=== PATIENT | male | born 1995 | race Two or more races ===

== ENCOUNTER 2017-02-22 11:42 | Emergency (ER) | payer MEDICAID ==
[~2017-02-22] VITALS: Ht 165.1 cm; Wt 65.8 kg
--- NOTE | 2017-02-22 11:58 | NUR ---
PT [facility]RA TO ER BED 12. PER REPORT, WITNESSED SEIZURE. PT IS [employer]. PLACED ON SEIZURE PRECAUTION. NO OBVIOUS HEAD TRAUMA. TONGUE LAC W/ NO ACTIVE BLEEDING. AWAITNG MD ARGUETA.
[2017-02-22] MEDS ORDERED: IV NS 0.9% 500 ML BAG IV ONE (12:00)
[2017-02-22] MEDS ORDERED: LEVETIRACETAM (500MG) 1,000 MG in IV NS 0.9% 100 ML IV SCH (12:00)
[2017-02-22] MEDS ORDERED: IV SET PRIMARY 1 EA INFUS.SET MC ONE (12:09)
[2017-02-22] MEDS ORDERED: IV NS 0.9% 500 ML IV ONE (12:09)
[2017-02-22] MEDS ORDERED: IV SET PRIMARY PUMP SET 1 EA INFUS.SET MC ONE (12:09)
[2017-02-22 12:10] LABS: BASOPHILS % (AUTO) 0.6 % (0.0-2.0); EOSINOPHILS % (AUTO) 0.3 % (0.0-6.0); HEMATOCRIT 45 % (39-51); HEMOGLOBIN 15.1 g/dL (13.5-17.5); LYMPHOCYTES # (AUTO) 1.6 /CMM (0.8-4.8); LYMPHOCYTES % (AUTO) 20.1 % (20.0-44.0); MEAN CORPUSCULAR HEMOGLOBIN 30 PG (26.0-33.0); MEAN CORPUSCULAR HGB CONC 33 g/dl (31.0-36.0); MEAN CORPUSCULAR VOLUME 89 fL (80-96); MONOCYTES # (AUTO) 0.4 /CMM (0.1-1.30); MONOCYTES % (AUTO) 5.1 % (2.0-12.0); NEUTROPHILS # (AUTO) 5.9 /CMM (1.8-8.9); NEUTROPHILS % (AUTO) 73.9 % (43.0-81.0); PLATELET COUNT (AUTO) 232 /CMM (150-450); RDW COEFFICIENT OF VARIATION 12.5 (11.5-15.0); RED BLOOD CELL COUNT(AUTO) 5.08 MIL/uL (4.5-6.0); WHITE BLOOD COUNT (AUTO) 7.9 K/uL (4.3-11.0)
--- NOTE | 2017-02-22 12:13 | NUR ---
PT TO RADIOLOGY HEAD CT SCAN VIA [facility].
[2017-02-22 12:19] LABS: CALCIUM, SERUM 9.5 mg/dL (8.5-10.1); CREATININE 1.4 mg/dL (0.6-1.3); POTASSIUM 3.7 mmol/L (3.5-5.1)
--- NOTE | 2017-02-22 12:33 | NUR ---
PATIENT REFUSE SCAN, NURSE WILL CALL WHEN READY
[2017-02-22] MEDS ORDERED: LORAZEPAM INJ 2 MG/ML VIAL ONE (12:35)
--- NOTE | 2017-02-22 12:40 | NUR ---
PT STILL CONFUSED UNABLE TO DO HEAD CT SCAN. DR VANESSA AWARE. MEDICATED ORDERED.
[2017-02-22] MEDS ORDERED: LORAZEPAM INJ 2 MG/ML VIAL IV ONE (13:00)
--- NOTE | 2017-02-22 13:05 | NUR ---
ACCOMPANIED PT TO RADIOLOGY FOR HEAD CT SCAN.
--- NOTE | 2017-02-22 14:14 | NUR ---
Patient discharged to home in stable condition. Written and verbal after care instructions given. Patient verbalizes understanding of instruction.IV removed. Catheter intact and site benign. Pressure and 4x4 applied to site. No bleeding noted. NAD NOTED UPON DISCHARGE, WILL FOLLOW UP WITH PMD AND RETURN IF SYMPTOMS GET WORSE.
[2017-02-22 14:15] VITALS: BP 146/93
== END 2017-02-22 14:15 | disposition home or self-care (01) ==
LOC: ER 11:43
DX: R56.9 Unspecified convulsions (principal); F17.200 Nicotine dependence, unspecified, uncomplicated
CPT/HCPCS: 36415; 70450-TC; 80048-TC; 85025-TC; A4606; J1953; J2060; J7030; J7040; Z7610

== ENCOUNTER 2022-12-17 08:17 | Emergency (ER) | payer MEDICAID, OTHER ==
[~2022-12-17] VITALS: Ht 170.2 cm; Wt 78.0 kg
--- NOTE | 2022-12-17 08:30 | NUR ---
ESTUARDO FROM HOME FOR POSSIBLE METH/ETOH ABUSE. SISTER AT BEDSIDE. PT IS AAOX4, DENIES SI/HI. DENIES METH USE AND ALCOHOL USE. SISTER AT BEDSIDE. PT WAS AGITATED ON SCENE PER PARAMEDICS BUT COOPERATIVE UPON ARRIVAL.
--- NOTE | 2022-12-17 08:31 | NUR ---
PT PLACED IN BED AND CONNECTED TO MONITOR. AWAITING MD ORDERS.
[2022-12-17] MEDS ORDERED: LORAZEPAM INJ 2 MG/ML VIAL ONE ×5 (09:18→15:58)
[2022-12-17] MEDS ORDERED: IV NS 0.9% 1,000 ML IV ONE ×2 (09:30→12:30)
[2022-12-17] MEDS ORDERED: LORAZEPAM INJ 2 MG/ML VIAL IV ONE ×3 (09:30→12:00)
[2022-12-17 09:43] LABS: BASOPHILS % (AUTO) 0.1 % (0.0-2.0); HEMATOCRIT 45 % (39-51); HEMOGLOBIN 14.5 g/dL (13.5-17.5); LYMPHOCYTES # (AUTO) 1.4 K/uL (0.8-4.8); LYMPHOCYTES % (AUTO) 12.3 % (20.0-44.0); MEAN CORPUSCULAR HGB CONC 32 g/dl (31.0-36.0); MEAN CORPUSCULAR VOLUME 88 fL (80-96); MONOCYTES # (AUTO) 0.6 K/uL (0.1-1.30); MONOCYTES % (AUTO) 5.1 % (2.0-12.0); NEUTROPHILS # (AUTO) 9.5 K/uL (1.8-8.9); NEUTROPHILS % (AUTO) 82.5 % (43.0-81.0); PLATELET COUNT (AUTO) 227 K/uL (150-450); RED BLOOD CELL COUNT(AUTO) 5.13 MIL/uL (4.5-6.0); WHITE BLOOD COUNT (AUTO) 11.5 K/uL (4.3-11.0)
[2022-12-17 10:05] LABS: CALCIUM, SERUM 9.5 mg/dL (8.5-10.1); CREATININE 1.1 mg/dL (0.6-1.3)
[2022-12-17 10:21] LABS: ALBUMIN 4.4 g/dL (3.4-5.0); BILIRUBIN,TOTAL 0.4 mg/dL (0.2-1.0); TOTAL PROTEIN, SERUM 8.6 g/dL (6.4-8.2)
[2022-12-17] MEDS ORDERED: FOLIC ACID 1 MG TABLET ONE (12:58)
[2022-12-17] MEDS ORDERED: THIAMINE HCL 100 MG TABLET ONE (12:58)
[2022-12-17] MEDS ORDERED: FOLIC ACID 1 MG TABLET PO ONE (13:00)
[2022-12-17] MEDS ORDERED: THIAMINE HCL 100 MG TABLET PO ONE (13:00)
[2022-12-17] MEDS ORDERED: HALOPERIDOL LACTATE INJ 5 MG/ML VIAL ONE (15:58)
[2022-12-17] MEDS ORDERED: diphenhydrAMINE HCL 50 MG/ML VIAL ONE (15:58)
[2022-12-17] MEDS ORDERED: HALOPERIDOL LACTATE INJ 5 MG/ML VIAL IM ONE (16:00)
[2022-12-17] MEDS ORDERED: diphenhydrAMINE HCL 50 MG/ML VIAL IM ONE (16:00)
[2022-12-17] MEDS ORDERED: LORAZEPAM INJ 2 MG/ML VIAL IM ONE (16:00)
--- NOTE | 2022-12-17 18:04 | NUR ---
TATIANA (SISTER) [phone] MARIAN (SISTER) [phone]
--- NOTE | 2022-12-17 18:50 | NUR ---
URINE SAMPLE SENT TO LAB
--- NOTE | 2022-12-17 22:35 | NUR ---
patient is awakr, alert and Ox4. ambulatory with steady gaits. reported feeeling well and requesting to leave. aware
[2022-12-17 22:48] LABS: BILIRUBIN,URINE NEGATIVE (NEGATIVE); COLOR,URINE YELLOW (YELLOW); LEUKOCYTE ESTERASE ,URINE NEGATIVE (NEGATIVE); NITRITE, URINE NEGATIVE (NEGATIVE); PH,URINE 5.5 (5.0-8.0); PROTEIN,URINE NEGATIVE (NEGATIVE); UGLUCOSE NEGATIVE (NEGATIVE); UROBILINOGEN,URINE 0.2 EU/dL (0.2)
--- NOTE | 2022-12-17 23:01 | NUR ---
Patient discharged to home in stable condition. Written and verbal after care instructions given. Patient verbalizes understanding of instruction.
[2022-12-18 05:37] VITALS: BP 141/88
== END 2022-12-17 23:05 | disposition home or self-care (01) ==
LOC: ER 08:20
DX: R41.82 Altered mental status, unspecified (principal); F19.10 Other psychoactive substance abuse, uncomplicated; F17.200 Nicotine dependence, unspecified, uncomplicated
CPT/HCPCS: 99285; 96374; 71045; 96361; 96372 ×2; 93005; 96376; 85025; 81003; 36415; 80053; 84484; 83880; 80307; J2060 ×4; J1200; J1630; J7030 ×2

== ENCOUNTER 2023-04-15 16:54 | Emergency (ER) | payer OTHER ==
[~2023-04-15] VITALS: Ht 170.2 cm; Wt 77.1 kg
[2023-04-15 17:00] VITALS: BP 132/84
--- NOTE | 2023-04-15 17:30 | NUR ---
Patient discharged to home in stable condition. Written and verbal after care instructions given. Patient verbalizes understanding of instruction.
== END 2023-04-15 17:30 | disposition home or self-care (01) ==
LOC: ER 16:56
DX: Z00.00 Encounter for general adult medical examination without abnormal findings (principal)

== ENCOUNTER 2024-07-20 19:53 | Emergency (ER) | payer OTHER | END 2024-07-20 22:15 | disposition left against medical advice (07) | LOC: ER 19:56 | DX: F19.90 Other psychoactive substance use, unspecified, uncomplicated (principal); Z53.21 Procedure and treatment not carried out due to patient leaving prior to being seen by health care provider ==